=== PATIENT | male | born 2000 | race African-American/Black ===

== ENCOUNTER 2024-07-02 05:36 | Emergency (ER) | payer MEDICAID ==
[~2024-07-02] VITALS: Ht 182.9 cm; Wt 66.0 kg
[2024-07-02 05:40] VITALS: PULSE 68; RESP 20; O2SAT 100
[2024-07-02 05:44] VITALS: BP 137/90; TEMP 37.1; O2SAT 100
== END 2024-07-02 08:33 | disposition left against medical advice (07) ==
LOC: ER 05:36
DX: R51.9 Headache, unspecified (principal); J45.909 Unspecified asthma, uncomplicated; Z53.21 Procedure and treatment not carried out due to patient leaving prior to being seen by health care provider